=== PATIENT | male | born 1965 | race Caucasian/White ===

== ENCOUNTER 2021-09-16 17:54 | Emergency (ER) | payer BC, SELFPAY ==
[2021-09-16 17:58] VITALS: BP 161/99; PULSE 98; RESP 18; TEMP 37.1; O2SAT 100; BMI 31.6
[2021-09-16 18:26] VITALS: BP 146/92; PULSE 90; RESP 18; TEMP 36.6; O2SAT 98
--- NOTE | 2021-09-16 18:32 | ED_ITS ---
HPI - General Adult General Chief complaint: General Medical Stated complaint: allergic reaction? Time Seen by Provider: 09/16/21 18:32 Source: patient Mode of arrival: ambulatory Limitations: no limitations History of Present Illness HPI narrative: Patient on niacin took a tablet at 17:00 felt flushing all over the body usually does not last that long this time lasting longer than usual no itching no shortness of breath no lip or tongue swelling slightly getting better now Related Data Allergies Allergy/AdvReac Type Severity Reaction Status Date / Time No Known Allergies Allergy Verified 09/16/21 17:58 Review of Systems Review of Systems: Yes all other systems are reviewed and are negative PMFSH Past Medical History Medical History DVT (deep venous thrombosis) High cholesterol Surgical History History of mandibular surgery Social History Social History Advance Directives: No Advance Directives Information Provided: Yes Physical Exam Vital Signs: Vital Signs: Last Vital Signs Temp 98 F 09/16/21 18:26 Pulse 70 09/16/21 19:47 Resp 16 09/16/21 19:47 BP 120/79 09/16/21 19:47 Pulse Ox 98 09/16/21 18:26 Body Mass Index 31.6 Appearance: Alert. Oriented X3. No acute distress. ENT: Pharynx normal. Oral Mucosa moist lips and tongue normal Neck: Normal inspection. Neck supple. CVS: Normal heart rate and rhythm. Pulses normal. Respiratory: No respiratory distress. Equal air entry bilateral, no wheezing/rales/rhonchi Abdomen: Soft and nontender. Bowel sounds are present, no mass palpable, Skin: Skin warm and dry. Flushing of the skin lower extremity and truncal area Normal skin turgor. Extremities: No lower extremity edema. Neuro: Oriented X 3. Medical Decision Making MDM Narrative Medical decision making narrative: Patient side effect likely from niacin flushing advised to stop niacin and talk to his physician about other alternativ e medication for hypertriglyceridemia Discharge Plan Discharge Clinical Impression: Medication side effects Patient Disposition: Home, Self-Care Instructions: Adverse Drug Reaction (ED) Additional Instructions: Your side effects from the niacin which showed taking Ask your doctor to change of medication to a different medication Follow with PCP if any concerns Interventions: ED Discharge Assessment Last Done: 09/16/21 19:47 Discharge Date/Time: 09/16/21 19:48
[2021-09-16] MEDS: Aspirin Enteric Coated 325 MG TABLET.DR PO (18:48)
[2021-09-16 19:47] VITALS: BP 120/79; PULSE 70; RESP 16
== END 2021-09-16 19:48 | disposition home or self-care (01) ==
PROVIDERS: Emergency Provider Internal Medicine; PCP Internal Medicine
DX: R23.2 Flushing (principal); T46.7X5A Adverse effect of peripheral vasodilators, initial encounter; Y92.009 Unspecified place in unspecified non-institutional (private) residence as the place of occurrence of the external cause
CPT/HCPCS: 99283; 99284